=== PATIENT | female | born 1960 | race African-American/Black ===

== ENCOUNTER 2021-02-20 19:25 | Emergency (ER) | payer BC, OTHER ==
[~2021-02-20] VITALS: Ht 160 cm; Wt 108.9 kg
[2021-02-20 20:12] VITALS: BP 128/70
[2021-02-20] MEDS ORDERED: KETOROLAC TROMETH 60MG/2ML VIAL IM ONE (20:45)
== END 2021-02-20 22:15 | disposition home or self-care (01) ==
LOC: ER 19:25
DX: S93.402A Sprain of unspecified ligament of left ankle, initial encounter (principal); I10 Essential (primary) hypertension; W18.39XA Other fall on same level, initial encounter; Y93.89 Activity, other specified; Y92.89 Other specified places as the place of occurrence of the external cause; Y99.8 Other external cause status
CPT/HCPCS: 73610; 99283; J1885